=== PATIENT | male | born 1990 | race Caucasian/White ===

== ENCOUNTER 2020-09-03 16:11 | Emergency (ER) | payer MEDICAID, OTHER ==
[2020-09-03 16:23] VITALS: BP 125/66
--- NOTE | 2020-09-03 17:36 | ED Physician Documentation ---
History of Present Illness - Stated complaint Stated Complaint: LT LEG SWOLLEN - Chief complaint Chief Complaint: Ext Problem - History obtained from History obtained from: Patient - History of Present Illness Timing: How many days ago (3) Pain level max: 0 Pain level now: 0 - Additonal information Additional information: 30-year-old male presents to the emergency department with intermittent swelling to the left calf over the past 3 days. Seems to be worse when he is kneeling, better with elevating his legs or walking. No redness. No fevers. No pain Review of Systems Constitutional: denies: Fever, Chills Cardiac: denies: Chest pain / pressure Respiratory: denies: Dyspnea, Wheezing PD PAST MEDICAL HISTORY - Past Medical History Past Medical History: No - Past Surgical History Past Surgical History: No - Present Medications Home Medications: Ambulatory Orders Medication Instructions Recorded Confirmed No Known Home Medications 03/23/15 03/23/15 - Allergies Allergies/Adverse Reactions: Allergies Allergy/AdvReac Type Severity Reaction Status Date / Time No Known Drug Allergies Allergy Verified 09/03/20 16:23 - Social History Does the pt smoke?: No Smoking Status: Never smoker Does the pt drink ETOH?: Yes Does the pt have substance abuse?: No - Immunizations Immunizations are current?: Yes PD ED PE NORMAL - Vitals Vital signs reviewed: Yes - General General: Alert and oriented X 3, No acute distress - HEENT HEENT: Moist mucous membranes - Neck Neck: Supple, no meningeal sign - Cardiac Cardiac: RRR - Respiratory Respiratory: No respiratory distress, Clear bilaterally - Derm Derm: Warm and dry - Extremities Extremities: No calf tenderness / cord, Other (Normal examination of the knee including all ligaments. No joint effusion. Minimal edema to the left anterior tibia and calf. Neurovascular intact. No skin changes. No calf tenderness.) - Neuro Neuro: Alert and oriented X 3 Results - Vitals Vitals: Vital Signs - 24 hr 09/03/20 16:17 Temperature 36.4 C L Heart Rate 66 Respiratory 16 Rate Blood Pressure 125/66 O2 Saturation 99 Oxygen O2 Source Room air - Rads (name of study) Duplex ultrasound left lower extremity Radiology: Prelim report reviewed, EMP read contemporaneously, See rad report (No acute findings no DVT) PD MEDICAL DECISION MAKING - ED course Complexity details: considered differential, d/w patient ED course: 30-year-old male with mild swelling to the left calf. Negative ultrasound. No evidence of bony abnormality. No evidence of knee injury or instability. No joint effusion. We will have him follow-up with his doctor for further care. No emergency medical condition at this time. Patient counseled regarding signs and symptoms for which I believe and urgent re-evaluation would be necessary. Patient with good understanding of and agreement to plan and is comfortable going home at this time This document was made in part using voice recognition software. While efforts are made to proofread this document, sound alike and grammatical errors may occur. Departure - Departure Disposition: 01 Home, Self Care Clinical Impression: Peripheral edema Condition: Good Instructions: ED Leg Swelling Unilateral Follow-Up: Your,doctor in 1 week [Other] Comments: Follow-up with your doctor this week for further care. Return if you worsen. Your ultrasound does not show any abnormalities today. Return especially for redness, swelling that does not go away or any other new or worsening symptoms. Discharge Date/Time: 09/03/20 17:47
--- NOTE | 2020-09-03 17:54 | Ultrasound Report ---
PROCEDURE: Duplex Ext Veins Left INDICATIONS: LLE swelling TECHNIQUE: Real-time imaging, as well as color and pulse Doppler interrogation, were performed of the lower extr emity deep veins from the inguinal ligament to the popliteal fossa. COMPARISON: None. FINDINGS: The deep veins are normally compressible, and free of intraluminal thrombus. Color and pu lse Doppler demonstrate normal phasic intraluminal flow. There is normal augmentation response to di stal compression maneuver. Additionally, near the area of reported pain in the anterior knee, near the underlying osseous struct ures, there is a 5 mm x 3 mm x 3 mm anechoic structure which likely represents a ganglion cyst or bette nt recess. IMPRESSION: No evidence of deep venous thrombosis in the left lower cavity. Additionally, near the area of reported pain in the anterior knee, near the underlying osseous struct ures, there is a 5 mm x 3 mm x 3 mm anechoic structure which likely represents a ganglion cyst or bette nt recess. Reviewed by: Mazin Meehan on 09/03/2020 4:52 PM ENRRIQUE Approved by: Mazin Meehan on 09/03/2020 4:52 PM ENRRIQUE Station ID: [id number]
--- OUTSIDE RECORDS SUMMARY | 2020-09-07 02:36 | EXTERNAL MEDICAL SUMMARY RPT | Continuity of Care Document ---
:1990 Demographics Phone Unavailable Preferred Language Unknown Marital Status Unknown Gnosticist Affiliation Unknown Race Unknown Ethnic Group Unknown Author Organization [facility] Address [address] [place] [address] Phone Social History date description facility [phone]
== END 2020-09-03 17:47 | disposition home or self-care (01) ==
LOC: ED 16:11
DX: R60.0 Localized edema (principal)
CPT/HCPCS: 99284

== ENCOUNTER 2020-09-20 19:01 | Outpatient (CLI) | payer OTHER | END 2020-09-20 19:02 | disposition home or self-care (01) | LOC: COV 19:01 | PROVIDERS: ATTEND Family Medicine | DX: U07.1 COVID-19 (principal) ==

== ENCOUNTER 2020-11-16 11:46 | Emergency (ER) | payer OTHER ==
--- NOTE | 2020-11-16 12:40 | ED Physician Documentation ---
PD HPI BACK PAIN - Stated complaint Stated Complaint: BACK PX - Chief complaint Chief Complaint: Back Pain - History obtained from History obtained from: Patient - History of Present Illness Timing - onset: Yesterday Timing - duration: Days (06/04) Timing - details: Gradual onset, Still present (worse with spasms awakening today.) Location: Lower, Right, Left Quality: Pain, Spasm Associated symptoms: No: Fever, Weakness, Numbness, Incontinent of urine Improves with: Position (lying down). No: Rest, Meds (ibuprofen) Worsened by: Movement, Lifting. No: Palpation Contributing factors: Lifting, Twisting. No: Trauma Similar symptoms before: No diagnosis (milder episodes but not chronic) Recently seen: Not recently seen Review of Systems Constitutional: denies: Fever, Chills Nose: denies: Rhinorrhea / runny nose, Congestion Throat: denies: Sore throat Respiratory: denies: Cough GI: denies: Abdominal Pain : denies: Incontinent Skin: denies: Rash Neurologic: denies: Focal weakness, Numbness PD PAST MEDICAL HISTORY - Past Medical History Past Medical History: No - Past Surgical History Past Surgical History: No - Present Medications Home Medications: Ambulatory Orders Medication Instructions Recorded Confirmed HYDROcod/ACETAM 5/325 [[place] 5/325] 1 ea PO Q6H PRN #18 tablet 11/16/20 dexAMETHasone [Decadron] 4 mg PO DAILY #5 tablet 11/16/20 tiZANidine [Zanaflex] 4 mg PO Q8H PRN #25 tablet 11/16/20 - Allergies Allergies/Adverse Reactions: Allergies Allergy/AdvReac Type Severity Reaction Status Date / Time No Known Drug Allergies Allergy Verified 11/16/20 12:04 - Social History Does the pt smoke?: No Smoking Status: Never smoker Does the pt drink ETOH?: Yes Does the pt have substance abuse?: No - Immunizations Immunizations are current?: Yes - POLST Patient has POLST: No PD ED PE NORMAL - Vitals Vital signs reviewed: Yes - General General: Alert and oriented X 3, Well developed/nourished, Other (appears quite uncomfortable from back pain. Standing bedside and leaning over, with chest on cart. Back is tender in paralumbar muscles left and right. No skin tenderness. No rash nor sores. ) - Cardiac Cardiac: RRR - Respiratory Respiratory: Clear bilaterally - Abdomen Abdomen: Soft, Non tender - Rectal Rectal: Deferred (but through clothing, has sensation to touch in perirectal and gluteal areas. ) - Back Back: No CVA TTP - Derm Derm: Normal color, Warm and dry - Extremities Extremities: No edema - Neuro Neuro: Alert and oriented X 3, No motor deficit, No sensory deficit, Normal speech Results - Vitals Vitals: Vital Signs - 24 hr 11/16/20 14:21 Temperature 36.7 C Heart Rate 66 Respiratory 12 Rate Blood Pressure 133/74 H O2 Saturation 100 Oxygen O2 Source Room air PD MEDICAL DECISION MAKING - ED course Complexity details: re-evaluated patient (improved enough with IM meds; he feels improved to go out and declines further meds. ), considered differential (no red flags to suggest need for labs/imaging. Does seem very uncomfortable so offered IM meds here. ), d/w patient Departure - Departure Disposition: 01 Home, Self Care Clinical Impression: Low back strain Qualifiers: Encounter type: initial encounter Qualified Code(s): S39.012A - Strain of muscle, fascia and tendon of lower back, initial encounter Condition: Stable Record reviewed to determine appropriate education?: Yes Instructions: ED Sprain Strain Lumbar Prescriptions: dexAMETHasone [Decadron] 4 mg PO DAILY #5 tablet HYDROcod/ACETAM 5/325 [[place] 5/325] 1 ea PO Q6H PRN #18 tablet PRN Reason: Pain tiZANidine [Zanaflex] 4 mg PO Q8H PRN #25 tablet PRN Reason: Spasms Comments: Heat and gentle stretching for the low back. Massage or chiropractic are good as well. Avoid heavy lifting and repetitive bending until its improving. Anti-inflammatories such as ibuprofen or naproxen 3 times a day with food. Add tizanidine muscle relaxant for spasms and stiffness. To that add Tylenol every 4-6 hours for pain or hydrocodone for worse pain. I would anticipate improvement over the next several days and resolution over 3 to 5 days or so. Recheck if not improving in that timeframe. You may still have some soreness and stiffness for a week or 2 even so be guarded about heavy activity and limited as needed. My narcotic instructions: I am prescribing a short course of narcotic pain medication for you. These are potentially dangerous and addictive medications that should be used carefully. These medications may constipate you. Take an uijb-pyg-peguiry stool softener such as docusate twice daily with plenty of water while taking these medications. If you go 24 hours without a bowel movement, take [id number] MiraLAX, per package instructions. Do not drink or drive while taking these medications. If you received narcotic or sedating medications while in the emergency department do not drive for 24 hours. Store this medication in a safe, secure place and out of reach of children. It is a violation of federal law to give or sell this medication to another person or to use in a manner other than prescribed. The ED will not refill narcotic prescriptions, including prescriptions lost or stolen. You can dispose of unwanted medications at the [facility]'s office or at several pharmacies such as [facility]. Discharge Date/Time: 11/16/20 14:25
[2020-11-16] MEDS ORDERED: DEXAMETHASONE 10 MG/ML VIAL PO STA (13:05)
[2020-11-16] MEDS ORDERED: methocarbamoL 500 MG TABLET PO STA (13:05)
[2020-11-16] MEDS ORDERED: KETOROLAC 30 MG/ML VIAL IM STA (13:05)
[2020-11-16] MEDS ORDERED: HYDROmorphone 2 MG/ML VIAL IM STA (13:05)
[2020-11-16] MEDS ORDERED: CHERRY SYRUP 10 ML UDC PO ONE (13:05)
[2020-11-16] MEDS ORDERED: ONDANSETRON ODT 4 MG TABLET TL STA (13:58)
[2020-11-16 14:22] VITALS: BP 133/74
== END 2020-11-16 14:25 | disposition home or self-care (01) ==
LOC: ED 11:46
DX: S39.012A Strain of muscle, fascia and tendon of lower back, initial encounter (principal); X58.XXXA Exposure to other specified factors, initial encounter
CPT/HCPCS: 96372; 99283; 99284; A9270; J1170; Q0162

== ENCOUNTER 2023-01-14 10:46 | Emergency (ER) | payer MEDICAID, OTHER ==
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
[2023-01-14 12:37] VITALS: BP 120/65; O2SAT 100
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
== END 2023-01-14 12:33 | disposition home or self-care (01) ==
LOC: ED 10:46
DX: S90.01XA Contusion of right ankle, initial encounter (principal); S93.401A Sprain of unspecified ligament of right ankle, initial encounter; W20.8XXA Other cause of strike by thrown, projected or falling object, initial encounter; Y93.I9 Activity, other involving external motion
CPT/HCPCS: 99283

== ENCOUNTER 2023-02-09 12:09 | Outpatient (CLI) | payer OTHER | END 2023-02-09 23:59 | disposition EMS.NT | LOC: EMS 12:09 | DX: Z04.1 Encounter for examination and observation following transport accident (principal) ==